=== PATIENT | female | born 1970 | race Caucasian/White ===

== ENCOUNTER 2023-11-25 09:58 | Day surgery (SDC) | payer OTHER ==
[~2023-11-25] VITALS: Ht 149.9 cm; Wt 57.6 kg
[2023-11-25] MEDS ORDERED: fentaNYL citrate 0.05 MG/ML VIAL ONE (11:46)
[2023-11-25] MEDS: fentaNYL citrate 0.05 MG/ML VIAL IVP ONE (12:30)
[2023-11-25] MEDS: LIDOCAINE 2% 100 MG/5 ML UJET TP ONE (12:43)
== END 2023-11-25 13:50 | disposition home or self-care (01) ==
LOC: MDS 09:58 → MMU 10:00 → MDS 13:50
PROVIDERS: ATTEND Internal Medicine Gastroenterology
DX: Z12.11 Encounter for screening for malignant neoplasm of colon (principal); K57.30 Diverticulosis of large intestine without perforation or abscess without bleeding; K64.9 Unspecified hemorrhoids; I10 Essential (primary) hypertension; Z90.49 Acquired absence of other specified parts of digestive tract; Z79.899 Other long term (current) drug therapy
CPT/HCPCS: 45378; J3010